=== PATIENT | female | born 1990 | race Caucasian/White ===

== ENCOUNTER 2017-10-15 15:18 | Emergency (ER) | payer MEDICAID ==
[~2017-10-15] VITALS: Ht 165.1 cm; Wt 174.0 kg
[~2017-10-15 15:18] MED LIST: ALPR1TAB2 PO; ASPI-691 PO; PREG300C PO; SUMA25TA4 PO
[2017-10-15] MEDS ORDERED: ACETAMINOPHEN 500 MG TABLET PO ONE (16:00)
[2017-10-15] MEDS ORDERED: METHOCARBAMOL 750 MG TABLET PO ONE (16:00)
[2017-10-15 16:47] VITALS: BP 141/81
== END 2017-10-15 15:51 | disposition home or self-care (01) ==
LOC: ED 15:45
DX: M54.5 Low back pain (principal); Z90.49 Acquired absence of other specified parts of digestive tract
CPT/HCPCS: 99283